=== PATIENT | male | born 1970 | race Caucasian/White ===

== ENCOUNTER 2023-11-22 15:50 | Emergency (ER) | payer BC, SELFPAY ==
[2023-11-22 15:51] VITALS: BP 109/79
[2023-11-22 16:10] LABS: % Basophils 0.3 % (0-2); % Eosinophils 0.5 % (0-6); % Immature Granulocytes 0.7 % (0-0.5); % Lymphocytes 12.1 % (20.5-51.1); % Monocytes 5.3 % (1.7-9.3); % Neutrophils 81.1 % (42.2-75.2); Absolute Eosinophils 0.1 10^3/uL (0-0.7); Absolute Immature Granulocytes 0.1 10^3/uL (0-0.05); Absolute Lymphocytes 1.8 10^3/uL (1.2-3.4); Absolute Monocytes 0.8 10^3/uL (0.1-0.6); Hematocrit 41.7 % (39.0-52.0); Hemoglobin 15.3 g/dL (13.0-18.0); Mean Corp Hgb Conc. 36.7 g/dL (33.0-37.0); Mean Corpuscular Hgb 28.4 pg (27.0-31.0); Mean Corpuscular Volume 77.5 fL (80.0-94.0); Nucleated Red Blood Cells % 0 % (-); Platelet Count 233 10^3/uL (130-400); Red Blood Cell Count 5.38 10^6/uL (4.70-6.10); Red Cell Dist. Width 13.1 % (11.5-14.5); White Blood Cell Count 14.8 10^3/uL (4.8-10.8)
[2023-11-22 16:25] LABS: ALT (SGPT) 29 U/L (0-50); AST (SGOT) 33 U/L (17-59); Albumin 3.6 g/dl (3.5-5.0); Alkaline Phosphatase 72 U/L (38-126); Blood Urea Nitrogen 24 mg/dl (9-20); Carbon Dioxide 24 mmol/L (22-30); Chloride 96 mmol/L (98-107); Glucose 314 mg/dl (70-99); Potassium 3.1 mmol/L (3.5-5.1); Sodium 131 mmol/L (135-145); Total Bilirubin 0.8 mg/dl (0.2-1.3); eGFR > 60.00
[2023-11-22 16:34] LABS: Troponin I < 0.012 ng/ml
[2023-11-22 16:53] LABS: TSH Reflex To Free T4 1.69 uIU/ml (0.47-4.68)
--- NOTE | 2023-11-22 17:43 | ED.GENMED ---
History of Present Illness
General
Chief Complaint: Blood Pressure Problem
Source: patient
Exam Limitations: none
Time Seen by Provider: 11/22/23 17:30
Travel History
Have you had any contact with someone who has COVID-19?: No
Do you have any symptoms of coronavirus? Fever > 100 degrees, chills, cough, shortness of breath, sore throat, loss of taste or smell, muscle aches, or headache?: No
History of Present Illness
History of Present Illness:
See MDM
Past History
Past History
ED Past Medical History: GERD, HTN and Hypercholesterolemia
ED Past Surgical History: Cholecystectomy and Urological
Phy Exam
Physical Exam
Physical Exam:
See MDM
Course
Orders/Labs/Results
Orders:
Orders
11/22/23 15:54
Electrocardiogram (*1) Urgent
Reason for Study: Palpitations
11/22/23 15:55
EKG- Treatment ONCE
11/22/23 16:01
Complete Blood Count/With Diff Urgent
Troponin I Urgent
11/22/23 16:02
Comprehensive Metabolic Panel Urgent
TSH Reflex To Free T4 Urgent
11/22/23 17:42
0.9% Sodium Chloride 1000 ml [Nss] 1,000 ml IV BOLUS
0.9% Sodium Chloride 1000 ml [Nss] 1,000 ml IV BOLUS
METFORMIN HCl [Glucophage] 500 mg PO NOW STA
Potassium Chloride [KCl] 40 meq PO NOW STA
Abnormal Lab Results
11/22/23 11/22/23
16:01 16:02
WBC 14.8 H 10^3/uL
(4.8-10.8)
MCV 77.5 L fL
(80.0-94.0)
MPV 11.0 H fL
(7.4-10.4)
Abs Immat Gran (auto) 0.1 H 10^3/uL
(0-0.05)
Absolute Neuts (auto) 12.0 H 10^3/uL
(1.4-6.5)
Absolute Monos (auto) 0.8 H 10^3/uL
(0.1-0.6)
Immature Gran % 0.7 H %
(0-0.5)
Neutrophils % 81.1 H %
(42.2-75.2)
Lymphocytes % 12.1 L %
(20.5-51.1)
Sodium 131 L mmol/L
(135-145)
Potassium 3.1 L mmol/L
(3.5-5.1)
Chloride 96 L mmol/L
(98-107)
BUN 24 H mg/dl
(9-20)
Glucose 314 H mg/dl
(70-99)
Total Protein 6.0 L g/dl
(6.3-8.2)
11/22/23 16:01
11/22/23 16:02
Vital Signs
Initial and Last Documented VS:
Initial Vital Signs
Temp Pulse Resp BP Pulse Ox
98.4 F 101 18 109/79 96
11/22/23 15:51 11/22/23 15:51 11/22/23 15:51 11/22/23 15:51 11/22/23 15:51
Last Documented Vital Signs
Temp Pulse Resp BP Pulse Ox
98.4 F 95 28 124/68 96
11/22/23 15:51 11/22/23 19:15 11/22/23 19:15 11/22/23 19:01 11/22/23 19:15
MDM/Problems Addressed
Differential Diagnosis Includes:
HPI and MDM Narrative:
53-year-old male presenting with near syncopal event over the past several days. He is becoming dizzy and lightheaded when he stands up quickly. He complains of increased thirst and increased urination. He recently finished steroid pack for
poison daren
Blood work was done prior to arrival. I discussed that his symptoms are consistent with new onset diabetes and dehydration. I discussed the EKG findings of prolonged QT and blood work showing hypokalemia.
Will start IV fluids and start metformin. Will provide oral potassium supplement. Discussed follow-up with PCP.
Patient placed on cardiac callback tracker
Physical exam
General: Well appearing and non-toxic
HEENT: protecting airway. Dry mucous membranes
Neck: appears supple
CV: No evidence of cyanosis. Regular rate and rhythm
Resp: No accessory muscle use
Abd: Non-distended
Extremities: No deformities
Neuro: alert
Psych: Normal affect
Skin: Intact
Problems Addressed including Acute and Chronic Conditions affecting care:
1. Orthostatic hypotension
Acuity: acute
Prognosis: stable
Details: In the setting of dehydration. Will give IV fluids
2. Hyperglycemia
Acuity: acute
Prognosis: stable
Details: Likely in setting of new onset diabetes. Will start metformin
3. Hypokalemia
Acuity: acute
Prognosis: stable
Details: Will replete orally
4. Prolonged QT
Acuity: acute
Prognosis: stable
Details: Likely in setting of dehydration and metabolic abnormalities. Discussed follow-up with cardiology
Differential Diagnosis (but not limited to): Syncope, palpitations, A-fib, dehydration
Testing considered: Second troponin
Drug therapy (if applicable): OTC meds, please see d/c instruction regarding Rx drugs
Amount and/or Complexity of Data Reviewed
Clinical info obtained from: Patient
External data reviewed: N/A
Labs I independently reviewed (but not limited to): Hypokalemia, hyper glycemia
Radiology: N/A
Pulse Ox: not hypoxic
EKG independently reviewed: Sinus rhythm, normal axis, no STEMI, PVCs, prolonged QT
Claims Investigator: Sinus rhythm with PVC
Critical Care: N/A
Risk of Complication:
Social Determinants of health: Good social support
Discussed with other providers: N/A
Escalation of Care includes Admit/Obs: After being observed in the Emergency Department, pt stable for discharge.
Occasional wrong word or 'sound a like' substitutions may have occurred due to the inherent limitations of voice recognition software. Read the chart carefully and recognize, using context, where substitutions have occurred.
*Critical Care Note
Total Time (30-74mins, 75-104mins- exclusive of procedures): Not Applicable
ED Attending Note
-
Portions of this chart may have been created with voice recognition software.� Occasional wrong word or��sound alike� substitutions may have occurred due to the inherent limitations of voice recognition software.
Discharge Plan
Departure
Patient Disposition: Home (Routine Discharge)
Date of Disposition: 11/22/23
Time of Disposition: 19:50
Patient with high blood pressure during this ER visit?: No
Discharge Problem:
Diabetes mellitus, new onset, Acute dehydration, Hypokalemia, Prolonged QT interval, Frequent PVCs
Instructions: Type 2 diabetes, Chest Pain CBC Follow Up
Prescriptions:
New
metformin 500 mg tablet
500 mg PO BID Qty: 60 0RF
No Action
montelukast 10 MG tablet
10 mg PO HS
fluticasone propion-salmeterol [Advair Diskus] 250-50 mcg/dose Blister With Device
1 inh INHALATION DAILY
omeprazole 40 mg Capsule,Delayed Release(Dr/Ec)
40 mg PO DAILY
lisinopril 10 mg Tablet
10 mg PO DAILY
hydrochlorothiazide 25 mg Tablet
25 mg PO DAILY
albuterol sulfate [ProAir HFA] 90 mcg/actuation Hfa Aerosol Inhaler
2 puff INHALATION PRN PRN (Reason: SOB)
finasteride 5 mg Tablet
5 mg PO DAILY
tadalafil 5 mg Tablet
5 mg PO DAILY
fenofibrate nanocrystallized 145 mg Tablet
145 mg PO DAILY
cetirizine [Aller-Gerber] 10 mg Tablet
10 mg PO DAILY
fluticasone propionate 50 mcg/actuation [place],Suspension
1 spray INTRANASAL PRN PRN (Reason: nasal congestion)
phenazopyridine 200 mg tablet
200 mg PO TID PRN (Reason: dysuria) Qty: 30 1RF
Referrals:
Yayo Lovell MD [Active] -
Activity Restrictions/Additional Instructions:
Please return for any worsening symptoms.
You may return at any time if you have further concerns.
Please follow up with your doctor at the first available appointment, preferably this week. Please discuss your new onset diabetes.
You were placed on the cardiac callback tracker. Someone from their office should call you in the next few days. If you do not hear from them in the next few days, please give them a call.
Thank you for choosing [facility].
Interventions
Interventions:
*Risk Screen - Suicide Last Done: 11/22/23 15:51
*General Assessment Last Done: 11/22/23 15:51
*Neglect/Abuse Screening Last Done: 11/22/23 15:51
ED- Cardiac Assessment Last Done: 11/22/23 19:02
ED- Neurological Assessment Last Done: 11/22/23 19:02
ED- Pulmonary Assessment Last Done: 11/22/23 19:02
Discharge Date and Time
Print Language: SWEDISH
[2023-11-22 17:54] VITALS: BP 108/61
[2023-11-22 18:00] VITALS: BP 111/72
[2023-11-22] MEDS: KCL 40 MEQ PO (18:00)
[2023-11-22] MEDS: NSS 1000 IV ×2 (18:00→18:02)
[2023-11-22] MEDS: GLUCOPHAGE 500 MG PO (18:00)
[2023-11-22 19:01] VITALS: BP 124/68
== END 2023-11-22 20:19 | disposition home or self-care (01) ==
LOC: EMR 15:50
PROVIDERS: Emergency Medicine; EMERGENCY PHYSICIAN Student in an Organized Health Care Education/Training Program; FAMILY PHYSICIAN Family Medicine
DX: E11.9 Type 2 diabetes mellitus without complications (principal); E86.0 Dehydration; E87.6 Hypokalemia; I45.81 Long QT syndrome; I49.3 Ventricular premature depolarization; K21.9 Gastro-esophageal reflux disease without esophagitis; I10 Essential (primary) hypertension; E78.00 Pure hypercholesterolemia, unspecified; Z90.49 Acquired absence of other specified parts of digestive tract
CPT/HCPCS: 99283; 96360; 80053; 84443; 84484; 85025; 93005

== ENCOUNTER → 2023-12-04 09:15 | Outpatient (REF) | payer BC, SELFPAY | LOC: RCS 09:15 | PROVIDERS: ATTENDING PHYSICIAN Internal Medicine Cardiovascular Disease | DX: R00.2 Palpitations (principal) | CPT/HCPCS: 93225; 93226 ==

== ENCOUNTER → 2023-12-09 11:39 | Outpatient (REF) | payer BC, SELFPAY | LOC: RAD 11:39 | PROVIDERS: ATTENDING PHYSICIAN Nurse Practitioner Adult Health; FAMILY PHYSICIAN Family Medicine | DX: R63.4 Abnormal weight loss (principal) | CPT/HCPCS: 74177; Q9967 ==

== ENCOUNTER → 2023-12-24 13:40 | Outpatient (REF) | payer BC, SELFPAY | LOC: RCS 13:40 | PROVIDERS: ATTENDING PHYSICIAN Internal Medicine Cardiovascular Disease; FAMILY PHYSICIAN Family Medicine | DX: R00.2 Palpitations (principal) | CPT/HCPCS: 93306 ==

== ENCOUNTER → 2024-02-18 06:16 | Day surgery (SDC) | payer BC, SELFPAY ==
[2024-02-18 07:57] LABS: Glucose - Point of Care 90 mg/dl (70-99)
== END ==
LOC: GI 06:16
PROVIDERS: ATTENDING PHYSICIAN Internal Medicine Gastroenterology
DX: Z12.11 Encounter for screening for malignant neoplasm of colon (principal); D12.3 Benign neoplasm of transverse colon; D12.4 Benign neoplasm of descending colon; K57.30 Diverticulosis of large intestine without perforation or abscess without bleeding; K64.8 Other hemorrhoids; K29.50 Unspecified chronic gastritis without bleeding; K31.7 Polyp of stomach and duodenum; R93.3 Abnormal findings on diagnostic imaging of other parts of digestive tract; R63.4 Abnormal weight loss; Z86.010 Personal history of colon polyps
CPT/HCPCS: 45385; 43239; 88305; 82962; 88342

== ENCOUNTER → 2024-12-27 11:44 | Outpatient (REF) | payer BC, SELFPAY | LOC: PAVMRI 11:44 | PROVIDERS: ATTENDING PHYSICIAN Family Medicine | DX: C61 Malignant neoplasm of prostate (principal); R90.89 Other abnormal findings on diagnostic imaging of central nervous system; R51.9 Headache, unspecified | CPT/HCPCS: 70553; A9575 ==

== ENCOUNTER → 2025-05-26 07:33 | Outpatient (REF) | payer BC, SELFPAY | LOC: HWRCS 07:33 | PROVIDERS: ATTENDING PHYSICIAN Internal Medicine Cardiovascular Disease; FAMILY PHYSICIAN Family Medicine | DX: I49.3 Ventricular premature depolarization (principal); Z87.898 Personal history of other specified conditions; E11.9 Type 2 diabetes mellitus without complications | CPT/HCPCS: 78452; 93017; A9500 ==

== ENCOUNTER → 2025-06-06 06:55 | Outpatient (REF) | payer BC, SELFPAY | LOC: RCS 06:55 | PROVIDERS: ATTENDING PHYSICIAN Internal Medicine Cardiovascular Disease; FAMILY PHYSICIAN Nurse Practitioner Adult Health | DX: R94.39 Abnormal result of other cardiovascular function study (principal); M79.641 Pain in right hand | CPT/HCPCS: 73120; 93306 ==

== ENCOUNTER → 2025-06-06 14:23 | Outpatient (REF) | payer BC, SELFPAY | LOC: MRI 14:23 | PROVIDERS: ATTENDING PHYSICIAN Internal Medicine Gastroenterology; FAMILY PHYSICIAN Family Medicine | DX: K76.0 Fatty (change of) liver, not elsewhere classified (principal) | CPT/HCPCS: 74183; 76391; A9575 ==